=== PATIENT | female | born 1980 | race Caucasian/White ===

== ENCOUNTER 2019-11-08 19:21 | Emergency (ER) | payer SELFPAY ==
[2019-11-08] MEDS ORDERED: Adacel (T-DAP) 0.5 ML SYRINGE ONE (19:31)
[2019-11-08] MEDS ORDERED: HYDROcodone/Acetaminophen 10/325 mg Tablet ONE (19:31)
[2019-11-08] MEDS ORDERED: Lidocaine 1% w/Epinephrine 1:100K 20 ML VIAL ONE (19:31)
== END 2019-11-08 21:00 | disposition home or self-care (01) ==
LOC: ERS 19:21
DX: S31.113A Laceration without foreign body of abdominal wall, right lower quadrant without penetration into peritoneal cavity, initial encounter (principal); S31.512A Laceration without foreign body of unspecified external genital organs, female, initial encounter; Z23 Encounter for immunization; W55.12XA Struck by horse, initial encounter
CPT/HCPCS: 12001; 90471; 90715

== ENCOUNTER 2019-11-10 09:58 | Emergency (ER) | payer OTHER, SELFPAY | END 2019-11-10 12:04 | disposition home or self-care (01) | LOC: ERS 09:58 | DX: S31.41XD Laceration without foreign body of vagina and vulva, subsequent encounter (principal); Z79.899 Other long term (current) drug therapy; Z79.891 Long term (current) use of opiate analgesic; V80.010D Animal-rider injured by fall from or being thrown from horse in noncollision accident, subsequent encounter | CPT/HCPCS: 99282 ==

== ENCOUNTER 2019-12-27 15:36 | Inpatient (IN) | payer OTHER ==
[2019-12-27 17:31] VITALS: BMI 28.2
[2019-12-27] MEDS ORDERED: Dextrose 5% in Water 1,000 ML IV PRN (17:37)
[2019-12-27] MEDS ORDERED: Ondansetron ODT 4 MG TAB PO PRN (17:37)
[2019-12-27] MEDS ORDERED: Ondansetron PF 4 MG/2 ML Vial IVP PRN ×2 (17:37→18:33)
[2019-12-27] MEDS ORDERED: hydrALAZINE 20 MG/ML VIAL SLOW IVP PRN (17:37)
[2019-12-27] MEDS ORDERED: Dextrose 50% Abboject 50 ML SYRINGE SLOW IVP PRN (17:37)
--- NOTE | 2019-12-27 18:11 | RAD ---
EXAM: Portable chest PROVIDED CLINICAL HISTORY: Pneumothorax COMPARISON: None FINDINGS: Cardiac and mediastinal silhouette is within normal limits. There is a left apical pneumothorax, proj ecting predominantly between the left third and fourth ribs. No focal consolidation or pleural fluid apparent. No evidence for right-sided pneumothorax. IMPRESSION: Small left apical pneumothorax.
[2019-12-27] MEDS ORDERED: Morphine 4 MG/ML VIAL ONE (18:23)
[2019-12-27] MEDS ORDERED: traMADol HCl 50 MG TAB PO PRN (18:33)
[2019-12-27] MEDS ORDERED: Morphine 2 MG/ML SYRINGE SLOW IVP PRN (18:35)
[2019-12-27] MEDS ORDERED: Sodium Chloride 0.9% 1,000 ML IV SCH (18:45)
[2019-12-27] MEDS ORDERED: traMADol HCl 50 MG TAB PO SCH (18:45)
[2019-12-27 18:53] LABS: Hemoglobin 14.1 g/dL (12.0-16.0); Mean Corpuscular HGB CONC 33.3 g/dL (32.0-36.0); Mean Corpuscular Hemoglobin 32.2 pg (27.0-31.0); Mean Corpuscular Volume 96.6 fL (78.0-98.0); Mean Platelet Volume 8.2 fL (7.4-10.4); Platelet Count 262 thou/uL (130-400); RBC Distribution Width 11.8 % (11.5-14.5); Red Blood Cell (RBC) Count 4.38 mill/uL (4.20-5.40); White Blood Cell (WBC) Count 8.4 thou/uL (4.8-10.8)
[2019-12-27] MEDS ORDERED: Acetaminophen 500 MG TAB PO SCH (19:00)
--- NOTE | 2019-12-27 19:11 | RAD ---
EXAM: XR Chest 1 View Portable PROVIDED CLINICAL HISTORY: Pneumothorax status post chest tube placement COMPARISON: 12/27/2019 5:38 PM FINDINGS: Interval placement of small-caliber left-sided chest tube. Interval decrease in size/resolution of pr eviously described left pneumothorax. Additional significant interval change is not apparent. IMPRESSION: As above.
--- NOTE | 2019-12-27 19:12 | RAD ---
EXAM: XR Femur Lt 2 View STANDARD PROVIDED CLINICAL HISTORY: Pain FINDINGS: There is no evidence for fracture or other acute osseous abnormality. Alignment appears anatomic. Viviana nt spaces appear preserved. IMPRESSION: No evidence for an acute osseous abnormality. If there is persistent clinical concern, conservative m anagement and follow-up imaging advised.
[2019-12-27 19:14] LABS: MDiff Complete? YES
[2019-12-27 19:15] LABS: Band 10 % (5-11); Eosinophils 1 % (0-10); Lymphocytes 23 % (21-51); Monocytes 4 % (0-10); Neutrophil 57 % (42-75); Platelet Morphology Comment Appears Adequate; RBC Morphology Normal; Reactive Lymphocytes 5 % (0-10)
[2019-12-27 19:18] LABS: ALT (SGPT) 23 U/L (8-55); AST (SGOT) 27 U/L (5-34); Albumin 4.2 g/dL (3.5-5.0); Alkaline Phosphatase 68 U/L (40-110); Anion Gap 12 mmol/L (10-20); BUN (Urea Nitrogen) 11 mg/dL (7.0-18.7); Bilirubin, Total 0.8 mg/dL (0.2-1.2); Calc. Creatinine Clearance 119 mL/min (70-130); Carbon Dioxide 25 mmol/L (22-29); Chloride 106 mmol/L (98-107); Estimated GFR-MDRD 80; Globulin 2.9 g/dL (2.4-3.5); Glucose 93 mg/dL (70-105); Magnesium 2.4 mg/dL (1.6-2.6); Potassium 3.3 mmol/L (3.5-5.1); Protein, Total 7.1 g/dL (6.0-8.3); Sodium 140 mmol/L (136-145)
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
[2019-12-27] MEDS: Ibuprofen 600 MG TAB PO SCH (22:14)
[2019-12-27] MEDS: Gabapentin 300 MG CAP PO SCH (22:16)
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
[2019-12-28] MEDS: Acetaminophen 500 MG TAB PO SCH ×3 (00:55→12:31)
[2019-12-28] MEDS: traMADol HCl 50 MG TAB PO SCH ×2 (00:56→12:32)
[2019-12-28] MEDS: Cyclobenzaprine 10 MG TAB PO PRN ×2 (02:04→11:03)
[2019-12-28] MEDS: Ibuprofen 600 MG TAB PO SCH ×2 (06:59→14:33)
--- NOTE | 2019-12-28 07:35 | RAD ---
CHEST 1 VIEW: Date: 12/28/2019 INDICATION: History of chest tube placement. COMPARISON: Prior exam dated 12/27/2019. FINDINGS: Left-sided thoracostomy tube is unchanged. Tiny right apical pneumothorax persists. Right lung is kwabena ar. Heart size is normal. IMPRESSION: Stable exam. POS: BH
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
[2019-12-28] MEDS: Gabapentin 300 MG CAP PO SCH ×2 (08:44→14:33)
[2019-12-28] MEDS ORDERED: Polyethylene Glycol 3350 17 GM Packet PO SCH (09:00)
--- NOTE | 2019-12-28 12:03 | RAD ---
EXAM: Portable chest PROVIDED CLINICAL HISTORY: Chest tube removal COMPARISON: 12/28/2019 4:23 AM FINDINGS: Cardiac and mediastinal silhouette is within normal limits. No focal consolidation, pleural fluid or pneumothorax evident. Interval removal of left-sided chest tube. Stable subsegmental atelectatic change right lung base. IMPRESSION: No evidence for an acute cardiopulmonary process.
[2019-12-28 15:49] VITALS: BP 100/64; TEMP 97.5
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
== END 2019-12-28 15:45 | disposition home or self-care (01) | DRG 200 ==
LOC: SURG A 16:53
PROVIDERS: ADMIT Surgery; ATTEND Surgery
PROC: 0W9B30Z Drainage of Left Pleural Cavity with Drainage Device, Percutaneous Approach (ICD-10-PCS; principal; 2019-12-27)
DX: S27.0XXA Traumatic pneumothorax, initial encounter (principal); S22.42XA Multiple fractures of ribs, left side, initial encounter for closed fracture; S40.012A Contusion of left shoulder, initial encounter; S70.12XA Contusion of left thigh, initial encounter; V86.69XA Passenger of other special all-terrain or other off-road motor vehicle injured in nontraffic accident, initial encounter
CPT/HCPCS: 36415; 71045; 80053; 82550; 83735; 84100; 85007; 85027; 94640; J2270; J2405; J7620

== ENCOUNTER 2019-12-29 12:18 | Observation (INO) | payer OTHER ==
[2019-12-29] MEDS ORDERED: Promethazine HCl 25 MG/ML VIAL ONE (12:24)
[2019-12-29] MEDS ORDERED: Fentanyl 100 MCG/2 ML VIAL ONE (12:36)
[2019-12-29 12:45] LABS: #Eosinphils 0.2 thou/uL (0.0-0.7); #Lymphocytes 1.2 thou/uL (1.20-3.40); #Monocytes 0.4 thou/uL (0.11-0.59); #Neutrophils 6.4 thou/uL (1.40-6.50); %Basophils 0.6 % (0.0-1.0); %Eosinophils 2.5 % (0.0-10.0); %Monocytes 5.2 % (0.0-10.0); %Neutrophils 76.8 % (42.0-75.0); Hemoglobin 12.1 g/dL (12.0-16.0); Mean Corpuscular Hemoglobin 32.1 pg (27.0-31.0); Mean Corpuscular Volume 97.1 fL (78.0-98.0); Mean Platelet Volume 8.3 fL (7.4-10.4); Platelet Count 239 thou/uL (130-400); RBC Distribution Width 11.6 % (11.5-14.5); Red Blood Cell (RBC) Count 3.78 mill/uL (4.20-5.40); White Blood Cell (WBC) Count 8.3 thou/uL (4.8-10.8)
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
[2019-12-29 12:53] LABS: BHCG - Serum Negative (NEGATIVE); Pregs Control Background? CLEAR/WHITE (CLR/WHITE); Pregs Control Bar Appear? YES (CONTROL BAR)
[2019-12-29 13:01] LABS: ALT (SGPT) 23 U/L (8-55); AST (SGOT) 25 U/L (5-34); Albumin 3.7 g/dL (3.5-5.0); Alkaline Phosphatase 54 U/L (40-110); Anion Gap 11 mmol/L (10-20); BUN (Urea Nitrogen) 10 mg/dL (7.0-18.7); Bilirubin, Total 0.3 mg/dL (0.2-1.2); Calc. Creatinine Clearance 0 mL/min (70-130); Calcium 8.1 mg/dL (7.8-10.44); Carbon Dioxide 27 mmol/L (22-29); Chloride 104 mmol/L (98-107); Estimated GFR-MDRD 88; Globulin 2.3 g/dL (2.4-3.5); Glucose 96 mg/dL (70-105); Potassium 3.9 mmol/L (3.5-5.1); Sodium 138 mmol/L (136-145)
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
[2019-12-29] MEDS ORDERED: Iopamidol-370 76% 500 ML 1 ML ONE (13:59)
[2019-12-29] MEDS ORDERED: Metoclopramide HCl 10 MG/2 ML VIAL ONE (14:51)
[2019-12-29] MEDS ORDERED: Pantoprazole 40 MG VIAL ONE (15:05)
[2019-12-29] MEDS ORDERED: Dextrose 50% Abboject 50 ML SYRINGE SLOW IVP PRN (15:08)
[2019-12-29] MEDS ORDERED: Dextrose 5% in Water 1,000 ML IV PRN (15:08)
[2019-12-29] MEDS ORDERED: Ondansetron PF 4 MG/2 ML Vial IVP PRN (15:08)
[2019-12-29] MEDS ORDERED: hydrALAZINE 20 MG/ML VIAL SLOW IVP PRN (15:08)
[2019-12-29 15:13] LABS: Bacteria/HPF None Seen HPF (None Seen); Bilirubin Negative (Negative); Blood, Urine 1+ (Negative); Clarity Clear (Clear); Glucose, Urine (Dipstick) Normal (Negative); Leukocyte Negative Leu/uL (Negative); Nitrite Negative (Negative); Protein, Urine (Dipstick) 10 mg/dL (Neg-Trace); Urobilinogen Normal mg/dL (Less than 2); WBC/HPF 0-3 HPF (0-3)
[2019-12-29] MEDS ORDERED: Sodium Chloride 0.9% 1,000 ML IV SCH (15:15)
[2019-12-29] MEDS ORDERED: Rib Fracture Protocol PO SCH (15:15)
[2019-12-29] MEDS ORDERED: Cyclobenzaprine 10 MG TAB PO PRN ×2 (15:30)
[2019-12-29 17:48] VITALS: BMI 28.6
[2019-12-29] MEDS ORDERED: Acetaminophen 650 MG Suppository PR SCH (18:00)
[2019-12-29] MEDS ORDERED: traMADol HCl 50 MG TAB PO SCH (18:00)
[2019-12-29] MEDS: traMADol HCl 50 MG TAB PO SCH ×2 (18:35→23:28)
[2019-12-29] MEDS: Acetaminophen 500 MG TAB PO SCH ×2 (18:35→23:26)
[2019-12-29] MEDS: Ibuprofen 800 MG TAB PO SCH ×2 (18:35→23:26)
[2019-12-29] MEDS: Gabapentin 300 MG CAP PO SCH (19:37)
[2019-12-29] MEDS: Senokot S 8.6-50 MG TAB PO SCH (19:38)
[2019-12-29] MEDS ORDERED: Gabapentin 100 MG CAP PO SCH (21:00)
[2019-12-29] MEDS ORDERED: Ibuprofen 600 MG TAB PO SCH (22:00)
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
[2019-12-30] MEDS: Ibuprofen 800 MG TAB PO SCH (06:17)
[2019-12-30] MEDS: traMADol HCl 50 MG TAB PO SCH (06:17)
[2019-12-30] MEDS: Acetaminophen 500 MG TAB PO SCH (06:17)
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
[2019-12-30 08:20] VITALS: BP 110/68; TEMP 97.7
[2019-12-30] MEDS: Senokot S 8.6-50 MG TAB PO SCH (08:27)
[2019-12-30] MEDS: Gabapentin 300 MG CAP PO SCH (08:27)
[2019-12-30] MEDS ORDERED: Polyethylene Glycol 3350 17 GM Packet PO SCH (09:00)
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
== END 2019-12-30 10:55 | disposition home or self-care (01) ==
LOC: ERS 12:18 → 2SW 17:26
PROVIDERS: ADMIT Surgery; ATTEND Surgery
DX: S22.42XA Multiple fractures of ribs, left side, initial encounter for closed fracture (principal); J93.9 Pneumothorax, unspecified; A08.4 Viral intestinal infection, unspecified
CPT/HCPCS: 36415; 70450; 71045; 71260; 74177; 80053; 81003; 81015; 84484; 84703; 85025; 86850; 86900; 86901; 87804; 93005; 94640; 96365; 96367; 96375; C9113; G0378; J2405; J2550; J2765; J3010; J7620; Q9967